=== PATIENT | male | born 1995 | race African-American/Black ===

== ENCOUNTER 2020-08-03 12:53 | Emergency (ER) | payer SELFPAY ==
[2020-08-03 13:06] VITALS: BP 126/90; PULSE 101; RESP 18; TEMP 37; O2SAT 100; BMI 16.5
[2020-08-03 14:00] VITALS: BP 122/64; PULSE 80; RESP 18; TEMP 37; O2SAT 100
[2020-08-03 14:20] LABS: Glucose Urine UA NEG (NEG); Leukocyte Esterase Urine 2+ (NEG); Nitrite Urine NEG (NEG); Urine Blood TRACE (NEG); Urine Ketones NEG (NEG); Urine Protein NEG (NEG-TRACE)
[2020-08-03 14:21] LABS: Appearance Urine CLOUDY; Color Urine YELLOW
[2020-08-03] MEDS: cefTRIAXone sodium 250 MG, Lidocaine HCl 1 % MPF 0.9 ML IM (14:22)
[2020-08-03] MEDS: Azithromycin 500 MG TABLET 1000 MG PO (14:25)
[2020-08-03 14:27] LABS: Bacteria Urine 1+ /LPF; WBC Urine 50-75 /HPF (0-4)
--- NOTE | 2020-08-03 14:50 | ED_ITS ---
HPI - Male Genitourinary General Chief complaint: Urogenital-Male Stated complaint: painful urination Time Seen by Provider: 08/03/20 13:39 Source: patient Mode of arrival: ambulatory Limitations: no limitations History of Present Illness HPI Narrative: States some discomfort in urination and slight clear discharge from penis for past 1 day. States he would like to get tested for ?chlamydia...gonorrhea? he denies any rash, testicular pain. States he had unprotected intercourse with his girlfriend who told come get checked. MD Complaint: penile discharge Radiation: penis Exacerbating factors: none Associated symptoms: Reports denies other symptoms Related Data Previous Rx's Medication Instructions Recorded ciprofloxacin HCl [Cipro] 500 mg PO Q12H 3 Days #6 tab 08/03/20 Allergies Allergy/AdvReac Type Severity Reaction Status Date / Time No Known Allergies Allergy Verified 08/03/20 13:09 Review of Systems Review of Systems: Constitutional: No Weight loss, No Fever, No Chills, No Night Sweats, No Fatigue, No Malaise ENT/Mouth: No Hearing loss, No Ear Pain, No Nasal Congestion, No Sinus Pain, No Hoarseness, No sore throat, No Rhinorrhea, No Swallowing Difficulty Eyes: No Eye Pain, No Swelling, No Redness, No Foreign Body, No Discharge, No Vision Changes Cardiovascular: No Chest Pain, No SOB, No Dyspnea on Exertion, No Orthopnea, No Edema, No Palpitations Respiratory: No Cough, No Sputum, No Wheezing, No Smoke Exposure, No Dyspnea Gastrointestinal: No Nausea, No Vomiting, No Diarrhea, No Constipation, No abdominal Pain, No Hematochezia, No Melena Genitourinary: no irregular bleeding, + Dysuria, No Urinary Frequency, No Hematuria, No Urinary Incontinence, No Urgency, No Flank Pain, No Urinary Flow Changes, No Hesitancy Musculoskeletal: No joint pain, No Myalgias, No Joint Swelling Skin: No Skin Lesions, No rash Neuro: No Weakness, No Numbness, No Paresthesias, No Loss of Consciousness, No Dizziness, No Headache Psych: No Anxiety/Panic, No Depression, No SI/HI/AH/VH, No Social Issues Heme/Lymph: No Bruising, No Bleeding,No Lymphadenopathy Endocrine: No Polyuria, No Polydipsia, No Temperature Intolerance Yes all other systems are reviewed and are negative [facility] Past Medical History Medical History (Updated 08/04/20 @ 00:00 by Background Daemon) No known health problems Social History Social History Alcohol intake: current Alcohol intake frequency: holidays/special occasions only Smoking Status: Current every day smoker Use of substances other than those prescribed or required for medical reasons: Yes Substance Use Type: Marijuana Advance Directives: No Advance Directives Information Provided: No Physical Exam Vital Signs: Vital Signs: Last Vital Signs Temp 98.6 F 08/03/20 14:00 Pulse 80 08/03/20 14:00 Resp 18 08/03/20 14:00 BP 122/64 08/03/20 14:00 Pulse Ox 100 08/03/20 14:00 Body Mass Index 16.5 Reviewed Const: General: cooperative and healthy appearing; No acute distress or intoxicated appearing Nutritional Appearance: average body habitus Orientation/consciousness: patient oriented x3 HENMT: Head: Yes normal to inspection Ears: hearing grossly normal bilaterally Eyes: General: appearance normal, both eyes and all related structures Visual Bonner: normal visual bonner by confrontation Chest: Chest palpation & inspection: normal inspection of the chest Resp: Effort & Inspection: normal respiratory effort Cardio: Jugular venous distension: no JVD GI: Inspection: Yes normal to inspection Percussion: Yes normal to percussion Auscultation: normal bowel sounds : General: Yes no CVA tenderness Back/Spine/Pelvis: Back: no CVA tenderness Skin: General skin exam: no rashes or lesions noted Neuro: General: patient oriented x3 Extrem: General: Yes normal to inspection Course Course Course Narrative: UA/CT ng swab obtained. Empirically treated with ceftriaxone/azithromycin. UA infected to the course of Cipro. Will go to [facility] for full panel testing. Will stain from any sexual activity until cleared. He is agreeance with plan. Stable for discharge. MDM - Male Genitourinary Lab Data Labs: Lab Results 08/03/20 08/03/20 Range/Units 14:13 14:13 Urine Color YELLOW Urine Appearance CLOUDY Urine pH 7.0 (5.0-8.0) Ur Specific [place] 1.010 (1.005-1.025) Urine Protein NEG (NEG-TRACE) MG/DL Urine Glucose (UA) NEG (NEG) MG/DL Urine Ketones NEG (NEG) MG/DL Urine Blood TRACE (NEG) Urine Nitrite NEG (NEG) Ur Leukocyte Esterase 2+ H (NEG) Urine RBC 5-9 H (0) /HPF Urine WBC 50-75 H (0-4) /HPF Ur Squamous Epith Cells NONE /LPF Urine Bacteria 1+ /LPF Chlam trachomat DNA PCR NOT DETECTED (Not Detect.) N.gonorrhoeae DNA (PCR) DETECTED A (Not Detect.) Discharge Plan Discharge Clinical Impression: Urethritis Patient Disposition: Home, Self-Care Instructions: Nonspecific Urethritis in Men (ED) Additional Instructions: Today you were evaluated for your urinary symptoms We have sent off swabs for chlamydia gonorrhea as you have expressed concern for this We have gone ahead and treated you for this with antibiotics here including a shot and some pills by mouth here I have sent a short course prescription to her pharmacy for antibiotics Will call you with the results in about 3-4 days only if positive and negative you will not hear from us Return if any concerns or worsening symptoms otherwise abstain from any sexual contact/intercourse until your symptoms are resolved and you have a full panel STD testing that is negative Thank you Prescriptions: New ciprofloxacin HCl [Cipro] 500 mg tablet 500 mg PO Q12H 3 Days Qty: 6 RF: 0 Referrals: Physician,None [Primary Care Provider] - 2 days ([facility] ) Interventions: ED Discharge Assessment Last Done: 08/03/20 14:57 Discharge Date/Time: 08/03/20 15:00
[2020-08-03 23:16] LABS: CT PCR NOT DETECTED (Not Detect.); NG PCR DETECTED (Not Detect.)
== END 2020-08-03 15:00 | disposition home or self-care (01) ==
PROVIDERS: Nurse Practitioner Primary Care; Emergency Provider Emergency Medicine
DX: N34.2 Other urethritis (principal); R36.9 Urethral discharge, unspecified; R30.0 Dysuria; F12.90 Cannabis use, unspecified, uncomplicated; F17.200 Nicotine dependence, unspecified, uncomplicated; Z71.6 Tobacco abuse counseling
CPT/HCPCS: 81001; 87086; 87491; 87591; 96372; 99284; J0696